=== PATIENT | male | born 2000 | race Caucasian/White ===

== ENCOUNTER 2021-10-07 19:12 | Emergency (ER) | payer OTHER ==
[2021-10-07] MEDS ORDERED: Acetaminophen 500 MG Tab PO ONE (19:21)
[2021-10-07 20:08] LABS: CORONAVIRUS COVID-19 NAA NEGATIVE (NEGATIVE)
== END 2021-10-07 20:30 | disposition home or self-care (01) ==
LOC: VM.ED 19:12
DX: J11.1 Influenza due to unidentified influenza virus with other respiratory manifestations (principal); Z20.822 Contact with and (suspected) exposure to COVID-19
CPT/HCPCS: 0240U; 99283; A9270-GY